=== PATIENT | male | born 1955 | race Caucasian/White ===

== ENCOUNTER 2017-10-23 10:01 | Day surgery (SDC) | payer OTHER ==
[~2017-10-23] VITALS: Ht 167.6 cm; Wt 81.3 kg
[2017-10-23] MEDS ORDERED: LEVSOD75 (10:15)
== END 2017-10-23 11:28 | disposition home or self-care (01) ==
LOC: ORSCSDS 10:01
PROVIDERS: Internal Medicine Gastroenterology
PROC: 0DJD8ZZ Inspection of Lower Intestinal Tract, Via Natural or Artificial Opening Endoscopic (ICD-10-PCS; principal; 2017-10-23 11:45)
DX: Z12.11 Encounter for screening for malignant neoplasm of colon (principal); Z87.891 Personal history of nicotine dependence; Z79.899 Other long term (current) drug therapy
CPT/HCPCS: J7120

== ENCOUNTER 2021-06-10 07:17 | Day surgery (SDC) | payer OTHER ==
[~2021-06-10] VITALS: Ht 167.6 cm; Wt 82.0 kg
[~2021-06-10 07:17] MED LIST: Aspir 8181 MG; LEVSOD100
[2021-06-10] MEDS ORDERED: CLOP75 PO (12:20)
--- NOTE | 2021-06-10 13:01 | NUR ---
10cc AIR REMOVED FROM R WRIST TR BAND. -BLEEDING OR SWELLING.
--- NOTE | 2021-06-10 14:30 | NUR ---
PT TR BAND REMOVED. NO BLEEDING. CLOTH DOT APPLIED WITH SPLINT/ SLING IN PLACE. IV DC'D. CATH INTACT. PRESSURE DSG IN PLACE. PT AND S/O VERBALIZES UNDERSTANDING WRITTEN AND VERBAL ORDERS. PT DC TO HOME VIA WC
== END 2021-06-10 14:35 | disposition home or self-care (01) ==
LOC: MHTC 07:17
DX: I25.10 Atherosclerotic heart disease of native coronary artery without angina pectoris (principal); R94.39 Abnormal result of other cardiovascular function study; R06.00 Dyspnea, unspecified; R00.2 Palpitations; R42 Dizziness and giddiness; K21.9 Gastro-esophageal reflux disease without esophagitis; I47.1 Supraventricular tachycardia; R53.83 Other fatigue; E03.9 Hypothyroidism, unspecified; Z87.891 Personal history of nicotine dependence
CPT/HCPCS: 76937; 85347; 93458; 93571; 99152; 99153; A9270; C1725; C1769; C1874; C1887; C1894; C9600; J0461; J1644; J2250; J3010; J7030; J7050; Q9967